=== PATIENT | male | born 1955 | race Caucasian/White ===

== ENCOUNTER 2021-01-29 11:19 | Inpatient (IN) ==
[2021-01-29] MEDS ORDERED: ROBITUSSIN DM PO PRN (12:15)
[2021-01-29] MEDS ORDERED: HumuLIN R SUBCUT PRN (12:15)
[2021-01-29] MEDS ORDERED: TUSSIONEX PENNKINETIC SUSP PO PRN (12:15)
[2021-01-29 13:57] LABS: BASOPHILS % (AUTO) 0.3 % (0.2-1.0); HEMATOCRIT 39.6 % (42.0-54.0); HEMOGLOBIN 13.6 g/dL (13.5-18.0); LYMPHOCYTES # (AUTO) 0.3 X10^3/uL (1.3-2.9); LYMPHOCYTES % (AUTO) 3.4 % (21.0-51.0); MEAN CORPUSCULAR HEMOGLOBIN 30.5 pg (27.0-34.0); MEAN CORPUSCULAR HGB CONC 34.3 g/dL (33.0-35.0); MEAN CORPUSCULAR VOLUME 88.9 fL (80.0-100.0); MEAN PLATELET VOLUME 7.7 fL (7.4-11.0); MONOCYTES # (AUTO) 0.4 x10^3/uL (0.3-0.8); MONOCYTES % (AUTO) 4.9 % (0.0-13.0); NEUTROPHILS # (AUTO) 7.9 x10^3/uL (2.2-4.8); NEUTROPHILS % (AUTO) 91.4 % (42.0-75.0); PLATELET COUNT 364 X10^3/uL (150.0-450.0); RED BLOOD COUNT 4.46 X10^6/uL (4.7-6.0); RED CELL DISTRIBUTION WIDTH 13.7 % (11.6-16.5); WHITE BLOOD COUNT 8.6 X10^3/uL (3.6-10.0)
[2021-01-29 14:21] LABS: BAND NEUTROPHILS % 1 % (0-10); PLATELET MORPHOLOGY COMMENT NORMAL (NORMAL)
[2021-01-29] MEDS ORDERED: PROTONIX TAB 40 MG PO ONE (14:31)
[2021-01-29] MEDS ORDERED: PEPCID TAB 20 MG ONE (14:31)
[2021-01-29] MEDS ORDERED: NS 100 ML IV + SPIKE MINIBAG* 100 ML IV ONE (14:32)
[2021-01-29] MEDS ORDERED: FORTAZ or TAZICEF VIAL INJ ONE (14:32)
[2021-01-29] MEDS ORDERED: SOLU-Medrol 40 MG VIAL ONE (14:32)
[2021-01-29] MEDS ORDERED: TESSALON PERLES PO ONE (14:32)
[2021-01-29] MEDS ORDERED: NS 50 ML IV 50 ML IV ONE (14:33)
[2021-01-29] MEDS ORDERED: ASCORBIC ACID INJ MULTI-DOSE VIAL IV ONE (14:33)
[2021-01-29] MEDS ORDERED: REMDESIVIR 200 MG in NS 100 ML IV 140 ML IV ONE (14:43)
[2021-01-29 14:46] LABS: BLOOD UREA NITROGEN 18 mg/dL (7-18); CALCIUM 9.4 mg/dL (8.5-10.1); CARBON DIOXIDE 24.6 mmol/L (21-32); CHLORIDE 101 mmol/L (98-107); COR NA(FOR HYPERGLY) 139 mmol/L (136-145); CREATININE 1.03 mg/dL (0.70-1.30); SODIUM 137 mmol/L (136-145); eGFR NON BLACK RACES > 60 (>60)
[2021-01-29] MEDS ORDERED: NS 1/2 1000 ML IV 1,000 ML IV ONE (15:00)
[2021-01-29 15:01] LABS: CKMB % 1.4 % (<4); CREATINE KINASE 178 Units/L (39-308); CREATINE KINASE MB 2.5 ng/mL (0-4.0)
[2021-01-29] MEDS: SOLU-Medrol 40 MG VIAL IVP SCH ×3 (15:01→22:44)
[2021-01-29] MEDS: TESSALON PERLES PO SCH ×2 (15:30→21:51)
[2021-01-29] MEDS: PROTONIX TAB 40 MG PO SCH ×2 (15:30→21:50)
[2021-01-29] MEDS: PEPCID TAB 20 MG PO SCH ×2 (15:30→21:50)
[2021-01-29] MEDS: FORTAZ or TAZICEF VIAL INJ IV SCH ×2 (15:40→21:51)
[2021-01-29] MEDS ORDERED: REMDESIVIR IV ONE (15:53)
[2021-01-29] MEDS ORDERED: NS 100 ML IV 100 ML ONE (15:54)
--- NOTE | 2021-01-29 16:17 | CT ---
HISTORYHYPOXIA, R/O PE, SOB, COVID +STUDYCTA CHESTCOMPARISONNoneTECHNIQUECT images of the chest were obtained after IV contrast administration per protocol. Automatic exposure control was utilized. MIP images provided and reviewed.FINDINGSImages through the upper abdomen demonstrate small hiatal hernia of the stomach. No acute osseous abnormality.The heart size is normal without pericardial thickening or pericardial effusion. The ascending aorta measures approximately 4.3 cm in diameter. The aortic arch and descending aorta are normal in caliber. Previous median sternotomy and CABG noted. No bulky intrathoracic lymph nodes. No pulmonary arterial filling defect is identified. There are basilar predominant ground-glass opacities throughout both lungs. No pleural effusion or pneumothorax. The large airways are patent.IMPRESSIONMultifocal pneumonitis in keeping with COVID-19.No evidence for PTE.Ascending aortic dilatation measuring 4.3 cm in diameter.Small hiatal hernia.Electronically signed by: MABLE KRISHNA (Jan 29, 2021 16:15:23)
[2021-01-29 16:57] VITALS: BMI 27.3
[2021-01-29] MEDS: NS 1/2 1000 ML IV 1,000 ML IV SCH (17:00)
[2021-01-29] MEDS ORDERED: PROVENTIL NEB TX 0.083% 2.5MG/ 3ML ONE (18:08)
[2021-01-29] MEDS: ACCUNEB 1.25 MG NEBULE NEB SCH ×3 (18:20→20:55)
[2021-01-29 18:24] LABS: ABG ALLEN TEST POS; ABG BASE EXCESS 0.9 mmol/L (-2.0-2.0); ABG HCO3 23.4 mmol/L (22-26)
[2021-01-29] MEDS: ASCORBIC ACID INJ MULTI-DOSE VIAL 1,500 MG in NS 50 ML IV 50 ML IV SCH ×2 (18:33→21:50)
[2021-01-29] MEDS: PULMICORT NEB TX 0.5 MG NEB SCH (20:55)
[2021-01-29] MEDS: SNACK - Diabetic Appropriate PO SCH (21:49)
[2021-01-29] MEDS: LIPITOR TAB 80 MG PO SCH (21:50)
[2021-01-29] MEDS: MELATONIN PO SCH (21:50)
[2021-01-29] MEDS: THIAMINE HCL INJ IVP SCH (21:50)
[2021-01-29] MEDS: SINGULAIR TAB 10 MG PO SCH (21:50)
[2021-01-29 23:32] LABS: ALANINE AMINOTRANSFERASE 58 Units/L (12-78); ALBUMIN 3.4 g/dL (3.4-5.0); ALKALINE PHOSPHATASE 95 Units/L (46-116); ASPARTATE AMINO TRANSFERASE 62 Units/L (15-37); TOTAL PROTEIN 7.6 g/dL (6.4-8.2)
[2021-01-30] MEDS: NS 1/2 1000 ML IV 1,000 ML IV SCH ×2 (02:34→06:00)
[2021-01-30] MEDS: ASCORBIC ACID INJ MULTI-DOSE VIAL 1,500 MG in NS 50 ML IV 50 ML IV SCH ×4 (02:35→21:37)
[2021-01-30] MEDS ORDERED: NS 1/2 1000 ML IV 1,000 ML IV ONE (05:50)
[2021-01-30] MEDS: FORTAZ or TAZICEF VIAL INJ IV SCH (05:59)
[2021-01-30] MEDS: TESSALON PERLES PO SCH ×3 (05:59→21:34)
[2021-01-30] MEDS: SOLU-Medrol 40 MG VIAL IVP SCH ×3 (05:59→21:34)
[2021-01-30 06:37] LABS: BASOPHILS % (AUTO) 0.2 % (0.2-1.0); HEMATOCRIT 35.6 % (42.0-54.0); HEMOGLOBIN 12.4 g/dL (13.5-18.0); LYMPHOCYTES # (AUTO) 0.4 X10^3/uL (1.3-2.9); LYMPHOCYTES % (AUTO) 3.4 % (21.0-51.0); MEAN CORPUSCULAR HEMOGLOBIN 30.8 pg (27.0-34.0); MEAN CORPUSCULAR HGB CONC 34.8 g/dL (33.0-35.0); MEAN CORPUSCULAR VOLUME 88.3 fL (80.0-100.0); MEAN PLATELET VOLUME 7.1 fL (7.4-11.0); MONOCYTES # (AUTO) 0.5 x10^3/uL (0.3-0.8); NEUTROPHILS # (AUTO) 10.7 x10^3/uL (2.2-4.8); NEUTROPHILS % (AUTO) 92.4 % (42.0-75.0); PLATELET COUNT 418 X10^3/uL (150.0-450.0); RED BLOOD COUNT 4.04 X10^6/uL (4.7-6.0); RED CELL DISTRIBUTION WIDTH 14.2 % (11.6-16.5); WHITE BLOOD COUNT 11.6 X10^3/uL (3.6-10.0)
[2021-01-30 06:53] LABS: ALANINE AMINOTRANSFERASE 64 Units/L (12-78); ALBUMIN 2.8 g/dL (3.4-5.0); ALKALINE PHOSPHATASE 81 Units/L (46-116); ASPARTATE AMINO TRANSFERASE 49 Units/L (15-37); BLOOD UREA NITROGEN 19 mg/dL (7-18); CALCIUM 8.7 mg/dL (8.5-10.1); CARBON DIOXIDE 27.9 mmol/L (21-32); CHLORIDE 106 mmol/L (98-107); COR CA(FOR HYPOALB) 9.7 mg/dL (8.5-10.1); COR NA(FOR HYPERGLY) 141 mmol/L (136-145); CREATININE 1.03 mg/dL (0.70-1.30); SODIUM 140 mmol/L (136-145); TOTAL PROTEIN 6.4 g/dL (6.4-8.2); eGFR NON BLACK RACES > 60 (>60)
[2021-01-30 07:48] LABS: BAND NEUTROPHILS % 2 % (0-10)
[2021-01-30 07:49] LABS: PLATELET MORPHOLOGY COMMENT NORMAL (NORMAL)
--- NOTE | 2021-01-30 08:16 | RAD ---
HISTORYSOBSTUDYAP [id number]/2021FINDINGSStable upper-normal heart size with sternal wires/hardware. Interval increase in bilateral interstitial and airspace densities, left greater than right. No discrete mass, extrapulmonary air or pleural fluid identified.IMPRESSIONIncreasing bilateral pulmonary infiltrates, appearance consistent with atypical pneumonia pattern.Electronically signed by: KIANA BERRY (Jan 30, 2021 08:13:47)
[2021-01-30] MEDS ORDERED: VITAMIN D3 125 mcg (5,000 UNITS) PO SCH (09:00)
[2021-01-30] MEDS ORDERED: LOVENOX INJ 40 MG SYR SC SCH (09:00)
[2021-01-30] MEDS: PULMICORT NEB TX 0.5 MG NEB SCH ×2 (09:20→20:48)
[2021-01-30] MEDS: ACCUNEB 1.25 MG NEBULE NEB SCH ×4 (09:20→20:48)
[2021-01-30] MEDS: BROVANA IN SCH ×2 (09:20→20:48)
[2021-01-30] MEDS ORDERED: NS 50 ML IV 0 ML IV ONE ×2 (09:45→14:32)
[2021-01-30] MEDS: ZyrTEC TAB 10 MG PO SCH (09:50)
[2021-01-30] MEDS: ZINC SULFATE PO SCH (09:50)
[2021-01-30] MEDS: PROTONIX TAB 40 MG PO SCH ×2 (09:50→21:35)
[2021-01-30] MEDS: LEVAQUIN PREMIX IV 500 MG 500 MG/100 ML BAG IV SCH (09:50)
[2021-01-30] MEDS: THIAMINE HCL INJ IVP SCH ×2 (09:50→21:35)
[2021-01-30] MEDS: PEPCID TAB 20 MG PO SCH ×2 (09:50→21:36)
[2021-01-30] MEDS: COZAAR PO SCH (11:00)
[2021-01-30] MEDS: REMDESIVIR 100 MG in NS 250 ML IV 250 ML IV SCH (11:17)
[2021-01-30] MEDS: CASODEX PO SCH (11:19)
--- NOTE | 2021-01-30 12:20 | DR.H&P ---
H&P - History & Physical for Day of: H&P Date: 01/29/21 - Chief Complaint Chief Complaint: COUGH, FEVER, WEAKNESS, SOB - History of Present Illness History of Present Illness: IS A 65 YEAR OLD PATIENT OF [facility]. HE WAS A DIRECT ADMISSION TO THE HOSPITAL FOR DIAGNOSIS OF PNEUMONIA DUE TO COVID-19. HE REPORTS HAVING SYMPTOMS OF FEVER, WEAKNESS, AND INCREASING SHORTNESS OF BREATH FOR THE PAST 10-12 DAYS. HE REPORTS THAT HIS WAS POSITIVE AND HIS MOTHER IN LAW RECENTLY WITH COVID. HE HAS BEEN TAKING LEVAQUIN 500MG PO DAILY, AZITHROMYCIN 500MG PO DAILY, COUGH MEDICATION, AND DEXAMETHASONE 6MG PO DAILY WITHOUT IMPROVEMENT IN SYMPTOMS. PATIENT HAS A PMH OF CVA, CAD, GA, HTN, BYPASS, ARTHRITIS, PROSTATE CANCER, AND PROSTATECTOMY. ON ARRIVAL TO THE HOSPITAL, VITALS WERE 98.9-95-22-95%NC-163/95. LABS WERE OBTAI ADRIANNA. ABNORMAL LAB VALUES INCLUDED THE FOLLOWING: RBC 4.46, HCT 39.6, D-DIMER 0.72, GLUCOSE 172, FERRITIN 1176, AST 62, CRP 84.30, BNP 137. COVID POSITIVE. INFLUENZA AND RSV NEGATIVE. AN ABG WAS OBTAINED AND REVEALED: PH 7.500, PC02 30, P02 54, HC03 23.4, 02 SAT 91, A-A GRADIENT 58, FI02 21.0. BLOOD CULTURES WERE SET UP. CHEST CTA WAS OBTAINED AND REVEALED: Multifocal pneumonitis in keeping with COVID-19. No evidence for PTE. Ascending aortic dilatation measuring 4.3 cm in diameter. Small hiatal hernia. EKG REVEALED: SINUS RHYTHM WITH HR 95. ECHO REVEALED: EJECTION FRACTION OF 61%. HE WAS STARTED ON 1/2NS AT 75 ML/HR, LEVAQUIN 500MG IV DAILY, FORTAZ 1G IV Q8H, REMDESIVIR 100MG IV DAILY, ASCORBIC ACID 1500MG IV Q6H, ALBUTEROL NEBS QID, PULMICORT NEBS BID, BROVANA INHALER BID, SOLU-MEDROL 80MG IV Q8H, FLUVOXAMINE 50MG PO BID, CYPROHEPTADINE 8MG PO TID, ELIQUIS 5MG PO BID, LIPITOR 80MG PO HS, TESSALON PERLES 200MG PO TID, CASODEX 50MG PO DAILY, CETIRIZINE 10MG PO DAILY, TUSSIONEX 5ML PO Q12H PRN, PEPCID 20MG PO BID, ROBITUSSIN DM 10ML PO QID PRN, HUMULIN R SLIDING SCALE, COZAAR 25MG PO DAILY, MELATONIN 10MG PO HS, SINGULAIR 10MG PO HS, PROTONIX 40MG PO BID, THIAMINE 200MG IV BID, AND ZINC SULFATE 220MG PO BID. OTHERWISE, WE PLAN TO FOLLOW UP WITH AM LABS AND CHEST XRAY AND CONTINUE TO MONITOR. TIME SPENT ON CLINICAL ASSESSMENT, REVIEWING LABS AND IMAGING, DECISION MAKING, AND DOCU MENTATION GREATER THAN 45 MINUTES. - Past Medical History Past Medical History: Arthritis, Coronary Artery Disease, CVA, Hypertension, GA Additional Medical History: PROSTATE CANCER - Past Surgical History Additional Surgical History: PROSTATECTOMY, BYPASS - Family History Family Medical History: Cancer, GA - Social History Does patient currently use any type of tobacco product: (smoked 3 years in college) Have you used tobacco products in the last 12 months: No Type of Tobacco Use: None Does any household member use tobacco: No Alcohol Use: None Drug Use: None - Medications Home Medications: No Known Drug Allergies Allergy (Verified 01/29/21 18:41) CONTINUE taking the following medications bicalutamide 50 mg PO DAILY 01/30/21 [History] losartan 25 mg PO DAILY 01/30/21 [History] - Review of Systems Constitutional: Fever, Chills, Weakness Eyes: No Symptoms Reported ENT: No Symptoms Reported Respiratory: See HPI, Cough, Shortness of Breath, SOB with Excertion Cardiovascular: No Symptoms Reported Gastrointestinal: No Symptoms Reported Genitourinary: No Symptoms Reported Musculoskeletal: No Symptoms Reported Skin: No Symptoms Reported Neurological: Weakness - Physical Exam Vital Signs: Temperature 97.4 F Pulse Rate [Left] 76 Pulse Rate 78 Respiratory Rate 18 Blood Pressure [Left Arm] 159/95 O2 Sat by Pulse Oximetry 92 Oriented: Normal Eyes: Normal Ear: Normal Nose: Normal Throat: Normal Respiratory: Diminished Throughout Cardiovascular: Normal : Normal Auscultation: Bowel Sounds: Normal Palpation: Normal Tenderness: Normal Skin: Normal Musculoskeletal: Normal Psychiatric: Normal Mood Description: Calm Affect: Normal Speech Pattern: Clear - Assessment/Plan (1) Pneumonia due to COVID-19 virus Status: Acute Plan: ADMIT, SUPPLEMENTAL OXYGEN, 1/2NS AT 75 ML/HR, LEVAQUIN 500MG IV DAILY, FORTAZ 1G IV Q8H, REMDESIVIR 100MG IV DAILY, ASCORBIC ACID 1500MG IV Q6H, ALBUTEROL NEBS QID, PULMICORT NEBS BID, BROVANA INHALER BID, SOLU-MEDROL 80MG IV Q8H, FLUVOXAMINE 50MG PO BID, CYPROHEPTADINE 8MG PO TID, ELIQUIS 5MG PO BID, LIPITOR 80MG PO HS, TESSALON PERLES 200MG PO TID, CASODEX 50MG PO DAILY, CETIRIZINE 10MG PO DAILY, TUSSIONEX 5ML PO Q12H PRN, PEPCID 20MG PO BID, ROBITUSSIN DM 10ML PO QID PRN, HUMULIN R SLIDING SCALE, COZAAR 25MG PO DAILY, MELATONIN 10MG PO HS, SINGULAIR 10MG PO HS, PROTONIX 40MG PO BID, THIAMINE 200MG IV BID, AND ZINC SULFATE 220MG PO BID. (2) HTN (hypertension) Qualifiers: Hypertension type: primary hypertension Qualified Code(s): I10 - Essential (primary) hypertension Status: Chronic (3) CVA (cerebral vascular accident) Qualifiers: CVA mechanism: unspecified Qualified Code(s): I63.9 - Cerebral infarction, unspecified Status: Chronic (4) CAD (coronary artery disease) Qualifiers: Coronary Disease-Associated Artery/Lesion type: [place] artery [place] vs. transplanted heart: [place] heart Associated angina: unspecified whether angina present Qualified Code(s): I25.10 - Atherosclerotic heart disease of [place] coronary artery without angina pectoris Status: Chronic (5) Prostate cancer Status: Chronic - Allergies Allergies/Adverse Reactions: Allergies Allergy/AdvReac Type Severity Reaction Status Date / Time No Known Drug Allergies Allergy Verified 01/29/21 18:41
[2021-01-30] MEDS: FLUVOXAMINE MALEATE PO SCH ×2 (14:23→21:36)
[2021-01-30] MEDS: PERIACTIN TAB 4 MG PO SCH ×2 (14:39→21:33)
[2021-01-30] MEDS: FORTAZ or TAZICEF VIAL INJ 1 G in NS 100 ML IV + SPIKE MINIBAG* 100 ML IV SCH ×2 (15:22→21:35)
[2021-01-30] MEDS: SNACK - Diabetic Appropriate PO SCH (21:33)
[2021-01-30] MEDS: SINGULAIR TAB 10 MG PO SCH (21:35)
[2021-01-30] MEDS: LIPITOR TAB 80 MG PO SCH (21:36)
[2021-01-30] MEDS: ELIQUIS PO SCH (21:36)
[2021-01-30] MEDS: MELATONIN PO SCH (21:36)
[2021-01-31] MEDS: ASCORBIC ACID INJ MULTI-DOSE VIAL 1,500 MG in NS 50 ML IV 50 ML IV SCH ×4 (02:30→21:34)
--- NOTE | 2021-01-31 05:13 | RAD ---
HISTORYSOBSTUDYAP [id number]/2021FINDINGSStable heart size with persistent bilateral airspace disease, unchanged in the right midlung and minimally increased in the periphery of left lung. No complicating pneumothorax or pleural fluid seen.IMPRESSIONBilateral pneumonia, slightly increased in the left lung. No additional abnormality demonstrated.Electronically signed by: KIANA BERRY (Jan 31, 2021 05:11:33)
[2021-01-31] MEDS: FORTAZ or TAZICEF VIAL INJ 1 G in NS 100 ML IV + SPIKE MINIBAG* 100 ML IV SCH ×3 (05:25→22:37)
[2021-01-31] MEDS: SOLU-Medrol 40 MG VIAL IVP SCH (05:25)
[2021-01-31] MEDS: TESSALON PERLES PO SCH ×3 (05:26→22:38)
[2021-01-31] MEDS: PERIACTIN TAB 4 MG PO SCH ×3 (05:26→22:38)
[2021-01-31 06:14] LABS: BASOPHILS # (AUTO) 0.1 X10^3/uL (0.0-0.1); HEMATOCRIT 34.1 % (42.0-54.0); HEMOGLOBIN 11.6 g/dL (13.5-18.0); LYMPHOCYTES # (AUTO) 0.4 X10^3/uL (1.3-2.9); LYMPHOCYTES % (AUTO) 2.9 % (21.0-51.0); MEAN CORPUSCULAR HGB CONC 34.1 g/dL (33.0-35.0); MEAN CORPUSCULAR VOLUME 87.8 fL (80.0-100.0); MEAN PLATELET VOLUME 6.9 fL (7.4-11.0); MONOCYTES # (AUTO) 0.5 x10^3/uL (0.3-0.8); MONOCYTES % (AUTO) 4.3 % (0.0-13.0); NEUTROPHILS # (AUTO) 11.3 x10^3/uL (2.2-4.8); NEUTROPHILS % (AUTO) 91.8 % (42.0-75.0); PLATELET COUNT 430 X10^3/uL (150.0-450.0); RED BLOOD COUNT 3.89 X10^6/uL (4.7-6.0); RED CELL DISTRIBUTION WIDTH 14.1 % (11.6-16.5); WHITE BLOOD COUNT 12.3 X10^3/uL (3.6-10.0)
[2021-01-31 06:22] LABS: ALANINE AMINOTRANSFERASE 64 Units/L (12-78); ALBUMIN 2.6 g/dL (3.4-5.0); ALKALINE PHOSPHATASE 95 Units/L (46-116); ASPARTATE AMINO TRANSFERASE 34 Units/L (15-37); BLOOD UREA NITROGEN 20 mg/dL (7-18); CARBON DIOXIDE 26.7 mmol/L (21-32); CHLORIDE 108 mmol/L (98-107); COR CA(FOR HYPOALB) 9.1 mg/dL (8.5-10.1); COR NA(FOR HYPERGLY) 142 mmol/L (136-145); CREATININE 1.08 mg/dL (0.70-1.30); SODIUM 141 mmol/L (136-145); TOTAL PROTEIN 5.7 g/dL (6.4-8.2); eGFR NON BLACK RACES > 60 (>60)
[2021-01-31 08:37] LABS: PLATELET MORPHOLOGY COMMENT NORMAL (NORMAL)
[2021-01-31] MEDS ORDERED: NS 100 ML IV 100 ML ONE (10:00)
[2021-01-31] MEDS: PULMICORT NEB TX 0.5 MG NEB SCH ×2 (10:04→21:00)
[2021-01-31] MEDS: BROVANA IN SCH ×2 (10:04→21:00)
[2021-01-31] MEDS: ACCUNEB 1.25 MG NEBULE NEB SCH ×3 (10:04→21:00)
[2021-01-31] MEDS: REMDESIVIR 100 MG in NS 250 ML IV 250 ML IV SCH (10:07)
[2021-01-31] MEDS: LEVAQUIN PREMIX IV 500 MG 500 MG/100 ML BAG IV SCH (10:08)
[2021-01-31] MEDS: PEPCID TAB 20 MG PO SCH ×2 (10:08→21:39)
[2021-01-31] MEDS: VITAMIN D3 25 mcg (1,000 UNITS) PO SCH (10:08)
[2021-01-31] MEDS: FLUVOXAMINE MALEATE PO SCH ×2 (10:09→21:35)
[2021-01-31] MEDS: COZAAR PO SCH (10:09)
[2021-01-31] MEDS: ELIQUIS PO SCH ×2 (10:10→21:35)
[2021-01-31] MEDS: PROTONIX TAB 40 MG PO SCH ×2 (10:10→21:34)
[2021-01-31] MEDS: ZyrTEC TAB 10 MG PO SCH (10:11)
[2021-01-31] MEDS: ZINC SULFATE PO SCH (10:11)
[2021-01-31] MEDS: THIAMINE HCL INJ IVP SCH ×2 (10:11→21:41)
[2021-01-31] MEDS: NS 1/2 1000 ML IV 1,000 ML IV SCH ×4 (10:13→17:34)
[2021-01-31] MEDS: CASODEX PO SCH (10:13)
--- NOTE | 2021-01-31 11:52 | PCM.PROG ---
Progress Note - Progress Note for Day of Date of Exam: 01/31/21 - Subjective Subjective: MR. SEYMOUR WAS ADMITTED FOR TREATMENT OF COVID PNEUMONIA. HE HAS A PMH OF HTN, CVA, CAD, AND PROSTATE CANCER. TODAY, HE IS ALERT AND ORIENTED, SITTING UP IN THE BED ON MORNING ROUNDS. HE CONTINUES WITH COMPLAINTS OF INTERMITTENT COUGH, SHORTNESS OF BREATH, AND WEAKNESS TODAY. HE DOES REPORT SLIGHT IMPROVEMENT IN SYMTPOMS SINCE ADMISSION. HE IS CURRENTLY ON OXYGEN VIA NASAL CANNULA AT 3 LITERS/MINUTE. HIS OXYGEN SATURATIONS HAVE BEEN ANYWHERE FROM 91-94% THIS MORNING AND THROUGHOUT THE NIGHT. ON EXAMINATION, HEART IS REGULAR IN RATE AND RHYTHM. BILATERAL LUNGS ARE NOTED WITH RALES THROUGHOUT. ABDOMEN IS ROUND, SOFT, AND NON-TENDER WITH NORMAL BOWEL SOUNDS NOTED IN ALL QUADRANTS. HIS VITALS THIS MORNING ARE: 97.6-62-21-92%-153/85. LABS WERE OBTAINED. ABNORMAL LAB VALUES INCLUDE THE FOLLOWING: WBC 12.3, RBC 3.89, HGB 11.6, HCT 34.1, D-DIMER 0.62, CHLORIDE 108, BUN 20, GLUCOSE 152, CALCIUM 8.0, FERRITIN 692, CRP 16.40, TOTAL PROTEIN 5.7, ALBUMIN 2.6. BLOOD CULTURES ARE PENDING. A CHEST XRAY WAS OBTAINED AND REVEALED: Bilateral pneumonia, slightly increased in the left lung. No additional abnormality demonstrated. HE IS CURRENTLY RECEIVING 1/2NS AT 75 ML/HR, LEVAQUIN 500MG IV DAILY, FORTAZ 1G IV Q8H, REMDESIVIR 100MG IV DAILY, ASCORBIC ACID 1500MG IV Q6H, ALBUTEROL NEBS QID, PULMICORT NEBS BID, BROVANA INHALER BID, SOLU-MEDROL 80MG IV Q8H, FLUVOXAMINE 50MG PO BID, CYPROHEPTADINE 8MG PO TID, ELIQUIS 5MG PO BID, LIPITOR 80MG PO HS, TESSALON PERLES 200MG PO TID, CASODEX 50MG PO DAILY, CETIRIZINE 10MG PO DAILY, TUSSIONEX 5ML PO Q12H PRN, PEPCID 20MG PO BID, ROBITUSSIN DM 10ML PO QID PRN, HUMULIN R SLIDING SCALE, COZAAR 25MG PO DAILY, MELATONIN 10MG PO HS, SINGULAIR 10MG PO HS, PROTONIX 40MG PO BID, THIAMINE 200MG IV BID, AND ZINC SULFATE 220MG PO BID. WE WILL CONTINUE WITH CURRENT PLAN OF CARE TODAY AND ATTEMPT TO WEAN DOWN OXYGEN MORE HE TOLERATES IT. OTHERWISE, WE WILL FOLLOW UP WITH AM LABS, CHEST XRAY, ABG, AND CONTINUE TO MONITOR. TIME SPENT ON CLINICAL ASSESSMENT, REVIEWING LABS AND IMAGING, DECISION MAKING, AND DOCUMENTATION GREATER THAN 45 MINUTES. - Past Medical Family Social History Past Med/Fam/Surg Hx: No changes since H&P Allergies: Allergies No Known Drug Allergies Allergy (Verified 01/29/21 18:41) - Review of Systems ROS: No change since H&P - Vital Signs and I&O's Vital Signs: Temperature 97.6 F Pulse Rate [Left] 62 Pulse Rate 79 Respiratory Rate 21 Blood Pressure [Left Arm] 153/85 O2 Sat by Pulse Oximetry 92 Intake and Output: Intake & Output 01/28/21 01/29/21 01/30/21 01/31/21 11:59 11:59 11:59 11:59 Intake Total 1286 / 1286 4273 / 4273 Output Total 275 / 275 1780 / 1780 Balance 1011 / 1011 2493 / 2493 - Physical Exam Oriented: Normal Eyes: Normal Ear: Normal Nose: Normal Throat: Normal Respiratory: Generalized, Diminished Cardiovascular: Normal : Normal Auscultation: Bowel Sounds: Normal Palpation: Normal Tenderness: Normal Skin: Normal Musculoskeletal: Normal Psychiatric: Normal Mood Description: Calm Affect: Normal Speech Pattern: Clear, Appropriate - Laboratory and Diagnostics Result Diagrams: 01/31/21 05:39 01/31/21 05:39 Labs: 01/29/21 13:06 Blood Blood Culture - Preliminary 01/29/21 12:58 Blood Blood Culture - Preliminary Laboratory WBC 12.3 X10^3/uL (3.6-10.0) H 01/31/21 05:39 RBC 3.89 X10^6/uL (4.7-6.0) L 01/31/21 05:39 Hgb 11.6 g/dL (13.5-18.0) L 01/31/21 05:39 Hct 34.1 % (42.0-54.0) L 01/31/21 05:39 MCV 87.8 fL (80.0-100.0) 01/31/21 05:39 MCH 30.0 pg (27.0-34.0) 01/31/21 05:39 MCHC 34.1 g/dL (33.0-35.0) 01/31/21 05:39 RDW 14.1 % (11.6-16.5) 01/31/21 05:39 Plt Count 430 X10^3/uL (150.0-450.0) 01/31/21 05:39 Plt Count Comment Adequate (ADEQUATE) 01/31/21 05:39 MPV 6.9 fL (7.4-11.0) L 01/31/21 05:39 Neut % (Auto) 91.8 % (42.0-75.0) H 01/31/21 05:39 Lymph % (Auto) 2.9 % (21.0-51.0) L 01/31/21 05:39 [place] % (Auto) 4.3 % (0.0-13.0) 01/31/21 05:39 Eos % (Auto) 0.0 % (0.9-2.9) L 01/31/21 05:39 Baso % (Auto) 1.0 % (0.2-1.0) 01/31/21 05:39 Neut # (Auto) 11.3 x10^3/uL (2.2-4.8) H 01/31/21 05:39 Lymph # (Auto) 0.4 X10^3/uL (1.3-2.9) L 01/31/21 05:39 [place] # (Auto) 0.5 x10^3/uL (0.3-0.8) 01/31/21 05:39 Eos # (Auto) 0.0 x10^3/uL (0.0-0.2) 01/31/21 05:39 Baso # (Auto) 0.1 X10^3/uL (0.0-0.1) 01/31/21 05:39 Absolute Nucleated RBC 0.0 /100WBC 01/31/21 05:39 Total Counted 100 01/31/21 05:39 Neutrophils % (Manual) 98 % (39-76) H 01/31/21 05:39 Band Neutrophils % 2 % (0-10) 01/30/21 05:30 Lymphocytes % (Manual) 1 % (13-43) L 01/31/21 05:39 Monocytes % (Manual) 1 % (4-9) L 01/31/21 05:39 Plt Morphology Comment Normal (NORMAL) 01/31/21 05:39 RBC Morphology Normal (NORMAL) 01/31/21 05:39 D-Dimer 0.62 ug/ml (0.0-0.57) H* 01/31/21 05:39 Sample Site Rra 01/29/21 18:22 ABG pH 7.500 (7.35-7.45) H 01/29/21 18:22 ABG pCO2 30.0 mmHg (35.0-45.0) L 01/29/21 18:22 ABG pO2 54.0 mmHg (80.0-100.0) L 01/29/21 18:22 ABG HCO3 23.4 mmol/L (22-26) 01/29/21 18:22 ABG O2 Saturation 91.0 % (90-100) 01/29/21 18:22 ABG Base Excess 0.9 mmol/L (-2.0-2.0) 01/29/21 18:22 Mario Test Pos 01/29/21 18:22 A-a Gradient 58.0 mmHg 01/29/21 18:22 FiO2 21.0 01/29/21 18:22 Blood Gas Comments Pt reggie well eb 01/29/21 18:22 Sodium 141 mmol/L (136-145) 01/31/21 05:39 Corrected Sodium 142 mmol/L (136-145) 01/31/21 05:39 Potassium 4.3 mmol/L (3.5-5.1) 01/31/21 05:39 Chloride 108 mmol/L (98-107) H 01/31/21 05:39 Carbon Dioxide 26.7 mmol/L (21-32) 01/31/21 05:39 BUN 20 mg/dL (7-18) H 01/31/21 05:39 Creatinine 1.08 mg/dL (0.70-1.30) 01/31/21 05:39 Est GFR (MDRD) Af Amer > 60 (>60) 01/31/21 05:39 Est GFR (MDRD) Non-Af > 60 (>60) 01/31/21 05:39 Glucose 152 mg/dL (65-99) H 01/31/21 05:39 Calcium 8.0 mg/dL (8.5-10.1) L 01/31/21 05:39 Corrected Calcium 9.1 mg/dL (8.5-10.1) 01/31/21 05:39 Ferritin 692 ng/mL (26-388) H 01/31/21 05:39 Total Bilirubin 0.20 mg/dL (0.2-1.0) 01/31/21 05:39 AST 34 Units/L (15-37) 01/31/21 05:39 ALT 64 Units/L (12-78) 01/31/21 05:39 Alkaline Phosphatase 95 Units/L (46-116) 01/31/21 05:39 Creatine Kinase 178 Units/L (39-308) 01/29/21 12:58 CK-MB (CK-2) 2.5 ng/mL (0-4.0) 01/29/21 12:58 CK/CKMB % Calc 1.4 % (<4) 01/29/21 12:58 Troponin I 0.00 ng/mL (0-1.5) 01/29/21 12:58 C-Reactive Protein 16.40 mg/L (0-3.0) H 01/31/21 05:39 B-Natriuretic Peptide 137 pg/mL (0-79) H 01/29/21 12:58 Total Protein 5.7 g/dL (6.4-8.2) L 01/31/21 05:39 Albumin 2.6 g/dL (3.4-5.0) L 01/31/21 05:39 Globulin 3.1 g/dL (2.5-4.5) 01/31/21 05:39 Albumin/Globulin Ratio 0.8 Ratio (1.1-2.1) L 01/31/21 05:39 SARS-CoV-2 (PCR) Positive (NEGATIVE) A 01/29/21 12:58 Influenza Type A (PCR) Negative (NEGATIVE) 01/29/21 12:58 Influenza Type B (PCR) Negative (NEGATIVE) 01/29/21 12:58 RSV (PCR) Negative (NEGATIVE) 01/29/21 12:58 - Plan (1) Pneumonia due to COVID-19 virus Status: Acute Plan: SUPPLEMENTAL OXYGEN, 1/2NS AT 75 ML/HR, LEVAQUIN 500MG IV DAILY, FORTAZ 1G IV Q8H, REMDESIVIR 100MG IV DAILY, ASCORBIC ACID 1500MG IV Q6H, ALBUTEROL NEBS QID, PULMICORT NEBS BID, BROVANA INHALER BID, SOLU-MEDROL 80MG IV Q8H, FLUVOXAMINE 50MG PO BID, CYPROHEPTADINE 8MG PO TID, ELIQUIS 5MG PO BID, LIPITOR 80MG PO HS, TESSALON PERLES 200MG PO TID, CASODEX 50MG PO DAILY, CETIRIZINE 10MG PO DAILY, TUSSIONEX 5ML PO Q12H PRN, PEPCID 20MG PO BID, ROBITUSSIN DM 10ML PO Q ID PRN, HUMULIN R SLIDING SCALE, COZAAR 25MG PO DAILY, MELATONIN 10MG PO HS, SINGULAIR 10MG PO HS, PROTONIX 40MG PO BID, THIAMINE 200MG IV BID, AND ZINC SULFATE 220MG PO BID. (2) HTN (hypertension) Status: Chronic Qualifiers: Hypertension type: primary hypertension Qualified Code(s): I10 - Essential (primary) hypertension (3) CVA (cerebral vascular accident) Status: Chronic Qualifiers: CVA mechanism: unspecified Qualified Code(s): I63.9 - Cerebral infarction, unspecified (4) CAD (coronary artery disease) Status: Chronic Qualifiers: Coronary Disease-Associated Artery/Lesion type: [place] artery [place] vs. transplanted heart: [place] heart Associated angina: unspecified whether angina present Qualified Code(s): I25.10 - Atherosclerotic heart disease of [place] coronary artery without angina pectoris (5) Prostate cancer Status: Chronic
[2021-01-31] MEDS: SOLU-Medrol 125 MG VIAL IVP SCH ×2 (14:34→22:38)
[2021-01-31] MEDS ORDERED: NS 1/2 1000 ML IV 1,000 ML IV ONE (17:28)
[2021-01-31] MEDS: SNACK - Diabetic Appropriate PO SCH (20:33)
[2021-01-31] MEDS: LIPITOR TAB 80 MG PO SCH (21:38)
[2021-01-31] MEDS: SINGULAIR TAB 10 MG PO SCH (21:39)
[2021-01-31] MEDS: MELATONIN PO SCH (21:39)
[2021-02-01] MEDS: ASCORBIC ACID INJ MULTI-DOSE VIAL 1,500 MG in NS 50 ML IV 50 ML IV SCH ×2 (03:00→10:29)
[2021-02-01 05:47] LABS: ABG ALLEN TEST POS; ABG BASE EXCESS 2.8 mmol/L (-2.0-2.0); ABG HCO3 25.9 mmol/L (22-26)
--- NOTE | 2021-02-01 06:18 | RAD ---
HISTORYSOB HX [place], CVA, PROSTATE CANCER. SX PROSTATE, CABGSTUDYCHEST, 1 [id number]/2021FINDINGSThe trachea is midline. The cardiac silhouette is unremarkable. Patchy bilateral airspace disease unchanged. Changes of prior CABG surgery noted. The bony thorax is unremarkable.IMPRESSIONPatchy bilateral airspace disease unchanged from 01/31/2021lectronically signed by: Andrew Johnson (Feb 01, 2021 06:16:21)
[2021-02-01 06:40] LABS: BASOPHILS # (AUTO) 0.1 X10^3/uL (0.0-0.1); BASOPHILS % (AUTO) 0.4 % (0.2-1.0); HEMATOCRIT 33.9 % (42.0-54.0); HEMOGLOBIN 11.7 g/dL (13.5-18.0); LYMPHOCYTES # (AUTO) 0.3 X10^3/uL (1.3-2.9); MEAN CORPUSCULAR HEMOGLOBIN 30.7 pg (27.0-34.0); MEAN CORPUSCULAR HGB CONC 34.5 g/dL (33.0-35.0); MEAN CORPUSCULAR VOLUME 88.9 fL (80.0-100.0); MONOCYTES # (AUTO) 0.6 x10^3/uL (0.3-0.8); MONOCYTES % (AUTO) 4.8 % (0.0-13.0); NEUTROPHILS # (AUTO) 12.1 x10^3/uL (2.2-4.8); NEUTROPHILS % (AUTO) 92.8 % (42.0-75.0); PLATELET COUNT 414 X10^3/uL (150.0-450.0); RED BLOOD COUNT 3.81 X10^6/uL (4.7-6.0); WHITE BLOOD COUNT 13.1 X10^3/uL (3.6-10.0)
[2021-02-01] MEDS: FORTAZ or TAZICEF VIAL INJ 1 G in NS 100 ML IV + SPIKE MINIBAG* 100 ML IV SCH ×2 (06:50→14:18)
[2021-02-01] MEDS: PERIACTIN TAB 4 MG PO SCH ×2 (06:51→14:18)
[2021-02-01] MEDS: SOLU-Medrol 125 MG VIAL IVP SCH ×2 (06:52→14:18)
[2021-02-01] MEDS: TESSALON PERLES PO SCH ×2 (06:52→14:18)
[2021-02-01 07:00] LABS: ALANINE AMINOTRANSFERASE 78 Units/L (12-78); ALBUMIN 2.4 g/dL (3.4-5.0); ALKALINE PHOSPHATASE 87 Units/L (46-116); ASPARTATE AMINO TRANSFERASE 36 Units/L (15-37); BLOOD UREA NITROGEN 24 mg/dL (7-18); CARBON DIOXIDE 26.3 mmol/L (21-32); CHLORIDE 107 mmol/L (98-107); COR CA(FOR HYPOALB) 9.3 mg/dL (8.5-10.1); COR NA(FOR HYPERGLY) 142 mmol/L (136-145); CREATININE 0.97 mg/dL (0.70-1.30); TOTAL PROTEIN 5.3 g/dL (6.4-8.2); eGFR NON BLACK RACES > 60 (>60)
[2021-02-01 07:04] LABS: SODIUM 140 mmol/L (136-145)
[2021-02-01 08:17] LABS: PLATELET MORPHOLOGY COMMENT NORMAL (NORMAL)
[2021-02-01] MEDS: ACCUNEB 1.25 MG NEBULE NEB SCH ×2 (09:03→13:30)
[2021-02-01] MEDS: PULMICORT NEB TX 0.5 MG NEB SCH (09:03)
[2021-02-01] MEDS: BROVANA IN SCH (09:10)
[2021-02-01] MEDS ORDERED: REMDESIVIR 100 MG in NS 250 ML IV 250 ML IV ONE (09:33)
[2021-02-01] MEDS ORDERED: REMDESIVIR 200 MG in NS 250 ML IV 250 ML IV NR (10:00)
[2021-02-01] MEDS: ELIQUIS PO SCH (10:30)
[2021-02-01] MEDS: PROTONIX TAB 40 MG PO SCH (10:31)
[2021-02-01] MEDS: VITAMIN D3 25 mcg (1,000 UNITS) PO SCH (10:31)
[2021-02-01] MEDS: PEPCID TAB 20 MG PO SCH (10:32)
[2021-02-01] MEDS: ZyrTEC TAB 10 MG PO SCH (10:33)
[2021-02-01] MEDS: COZAAR PO SCH (10:33)
[2021-02-01] MEDS: ZINC SULFATE PO SCH (10:33)
[2021-02-01] MEDS: FLUVOXAMINE MALEATE PO SCH (11:24)
[2021-02-01] MEDS: LEVAQUIN PREMIX IV 500 MG 500 MG/100 ML BAG IV SCH (11:25)
[2021-02-01] MEDS: THIAMINE HCL INJ IVP SCH (11:33)
[2021-02-01] MEDS: CASODEX PO SCH (11:33)
[2021-02-01 16:35] VITALS: BP 148/84
== END 2021-02-01 17:00 | disposition home or self-care (01) | DRG 177 ==
LOC: OBS → OBSVTOIN 12:32 → MED/SURG 20:24
PROVIDERS: ADMIT Internal Medicine; ATTEND Internal Medicine
DX: I25.10 Atherosclerotic heart disease of native coronary artery without angina pectoris; R26.9 Unspecified abnormalities of gait and mobility; M19.90 Unspecified osteoarthritis, unspecified site; R09.02 Hypoxemia; J12.81 Pneumonia due to SARS-associated coronavirus; U07.1 COVID-19; R06.02 Shortness of breath; I10 Essential (primary) hypertension